=== PATIENT | female | born 1980 | race Caucasian/White ===

== ENCOUNTER 2020-10-11 11:36 | Emergency (ER) | payer BC, MEDICAID ==
[~2020-10-11] VITALS: Ht 162.6 cm; Wt 75.0 kg
[2020-10-11] MEDS ORDERED: SODIUM CHLORIDE 0.9% 1,000 ML IV ONE (13:15)
[2020-10-11 14:04] LABS: CHLORIDE 115 mEq/L (98-107)
[2020-10-11 14:07] LABS: ETHANOL BLOOD 21 mg/dL
[2020-10-11 14:10] LABS: BASOPHILS % 0.8 % (0.0-2.0); EOSINOPHILS % 2.5 % (0.0-5.0); HEMATOCRIT. 42.7 % (36.0-48.0); HEMOGLOBIN. 14.2 g/dL (12.0-16.0); LYMPHOCYTES % 26.2 % (20.0-50.0); MEAN CORPUSCULAR HEMOGLOBIN 28.1 pg (28.0-32.0); MEAN CORPUSCULAR VOLUME 84.4 fL (81.0-99.0); MEAN PLATELET VOLUME 8.8 fl (7.4-10.4); MONOCYTES % 9.7 % (2.0-8.0); NEUTROPHILS % 60.8 % (40.0-76.0); PLATELET 284 x1000/uL (130-400); RED BLOOD CELL COUNT 5.06 mill/uL (4.2-5.4); RED CELL DISTRIBUTION WIDTH 15.1 % (11.6-14.6)
[2020-10-11] MEDS ORDERED: IBUPROFEN 400MG TABLET PO NR (14:15)
[2020-10-11] MEDS ORDERED: ACETAMINOPHEN 325MG TABLET PO NR (14:15)
[2020-10-11 14:51] LABS: *AMPHETAMINES SCREEN URINE NEGATIVE (NEGATIVE)
[2020-10-11 14:52] LABS: *BARBITURATES SCREEN URINE NEGATIVE (NEGATIVE); *BENZODIAZEPINES SCREEN URINE NEGATIVE (NEGATIVE); *COCAINE SCREEN URINE NEGATIVE (NEGATIVE); METHADONE URINE SCREEN NEGATIVE (NEGATIVE); PHENCYCLIDINE URINE SCREEN NEGATIVE (NEGATIVE)
[2020-10-11 14:53] LABS: CANNABINOID URINE SCREEN NEGATIVE (NEGATIVE)
[2020-10-11 14:56] LABS: OPIATES URINE SCREEN PRESUMTIVE POSITIVE (NEGATIVE)
[2020-10-11 15:05] LABS: HCG SCREEN NEGATIVE
[2020-10-11 16:16] VITALS: BP 120/86
== END 2020-10-11 16:17 | disposition home or self-care (01) ==
LOC: ER 11:36
DX: M54.2 Cervicalgia (principal); M25.551 Pain in right hip; F10.129 Alcohol abuse with intoxication, unspecified; Y90.1 Blood alcohol level of 20-39 mg/100 ml; Z90.49 Acquired absence of other specified parts of digestive tract; W18.39XA Other fall on same level, initial encounter; Y93.89 Activity, other specified; Y92.89 Other specified places as the place of occurrence of the external cause; Y99.8 Other external cause status
CPT/HCPCS: 36415; 70450; 71045; 72125; 72170; 80053; 80305; 80320; 81025; 84703; 85025; 96360; 99285; J7030; G0480

== ENCOUNTER 2022-07-05 09:33 | Emergency (ER) | payer BC, MEDICAID ==
[~2022-07-05] VITALS: Ht 162.6 cm; Wt 59.0 kg
[2022-07-05 09:35] VITALS: BP 114/79
[2022-07-05 10:01] LABS: BASOPHILS % 0.7 % (0.0-2.0); EOSINOPHILS % 3.1 % (0.0-5.0); HEMATOCRIT. 36.7 % (36.0-48.0); HEMOGLOBIN. 12.8 g/dL (12.0-16.0); LYMPHOCYTES % 26.6 % (20.0-50.0); MEAN CORPUSCULAR HEMOGLOBIN 28.9 pg (28.0-32.0); MEAN CORPUSCULAR VOLUME 83.1 fL (81.0-99.0); MEAN PLATELET VOLUME 8.1 fl (7.4-10.4); MONOCYTES % 8.1 % (2.0-8.0); NEUTROPHILS % 61.5 % (40.0-76.0); PLATELET 398 x1000/uL (130-400); RED BLOOD CELL COUNT 4.42 mill/uL (4.2-5.4)
[2022-07-05 10:50] LABS: CHLORIDE 108 mEq/L (98-107)
[2022-07-05 12:47] LABS: CLARITY URINE CLEAR (CLEAR); COLOR URINE YELLOW (YELLOW); KETONES URINE 1+ (NEGATIVE); LEUKOCYTE ESTERASE URINE NEGATIVE (NEGATIVE); NITRITE URINE NEGATIVE (NEGATIVE); OCCULT BLOOD URINE NEGATIVE (NEGATIVE); PROTEIN URINE NEGATIVE (NEGATIVE); SPECIFIC GRAVITY URINE 1.011 (1.005-1.030)
[2022-07-05] MEDS ORDERED: ONDANSETRON 4MG ODT PO ONE (13:15)
[2022-07-05] MEDS ORDERED: FAMOTIDINE 20MG TABLET PO ONE (13:15)
[2022-07-05] MEDS ORDERED: ACETAMINOPHEN 325MG TABLET PO ONE (13:15)
[2022-07-05] MEDS ORDERED: FAMOTIDINE 20MG TABLET PO NR (16:00)
[2022-07-05] MEDS ORDERED: ACETAMINOPHEN 325MG TABLET PO NR (16:00)
[2022-07-05] MEDS ORDERED: ONDANSETRON 4MG ODT PO NR (16:00)
[2022-07-05] MEDS ORDERED: ONDA4TAB11 PO (16:54)
[2022-07-05] MEDS ORDERED: TOPUD MT (16:54)
[2022-07-05] MEDS ORDERED: PNV1TABL76 MT (16:54)
== END 2022-07-05 17:31 | disposition home or self-care (01) ==
LOC: ER 09:33
DX: O26.891 Other specified pregnancy related conditions, first trimester (principal); R10.9 Unspecified abdominal pain; Z3A.01 Less than 8 weeks gestation of pregnancy
CPT/HCPCS: 36415; 76801; 76817; 80053; 81003; 81025; 83690; 84702; 85025; 86850; 86900; 86901; 93005; 99285; Q0162

== ENCOUNTER 2022-08-10 18:26 | Emergency (ER) | payer MEDICAID, OTHER ==
[~2022-08-10] VITALS: Ht 162.6 cm; Wt 59.1 kg
[~2022-08-10 18:26] MED LIST: ONDA4TAB11 PO; PNV1TABL76 MT; TOPUD MT
[2022-08-10 19:50] LABS: BASOPHILS % 0.6 % (0.0-2.0); EOSINOPHILS % 2.1 % (0.0-5.0); LYMPHOCYTES % 22.6 % (20.0-50.0); MEAN CORPUSCULAR HEMOGLOBIN 29.1 pg (28.0-32.0); MEAN CORPUSCULAR VOLUME 85.3 fL (81.0-99.0); MEAN PLATELET VOLUME 8.6 fl (7.4-10.4); MONOCYTES % 8.4 % (2.0-8.0); NEUTROPHILS % 66.3 % (40.0-76.0); PLATELET 338 x1000/uL (130-400); RED BLOOD CELL COUNT 4.11 mill/uL (4.2-5.4); RED CELL DISTRIBUTION WIDTH 14.1 % (11.6-14.6)
[2022-08-10 19:55] LABS: CHLORIDE 106 mEq/L (98-107)
[2022-08-10 20:03] LABS: CLARITY URINE CLEAR (CLEAR); COLOR URINE YELLOW (YELLOW); KETONES URINE 4+ (NEGATIVE); LEUKOCYTE ESTERASE URINE NEGATIVE (NEGATIVE); NITRITE URINE NEGATIVE (NEGATIVE); OCCULT BLOOD URINE NEGATIVE (NEGATIVE); PH URINE 5.5 (4.5-8.0); PROTEIN URINE TRACE (NEGATIVE); SPECIFIC GRAVITY URINE 1.021 (1.005-1.030)
[2022-08-10 20:25] LABS: B-HCG QUANTITATIVE 73753 mIU/mL (<3)
[2022-08-10 21:55] VITALS: BP 106/72
[2022-08-10] MEDS ORDERED: CEPH500C2 MT (22:44)
[2022-08-10] MEDS ORDERED: DOXY25TA49 PO (22:44)
[2022-08-10] MEDS ORDERED: PYRI25TA4 MT (22:44)
[2022-08-10] MEDS ORDERED: ONDANSETRON 4MG ODT PO ONE (22:45)
[2022-08-10] MEDS ORDERED: ACETAMINOPHEN 325MG TABLET PO ONE (23:00)
== END 2022-08-10 23:00 | disposition home or self-care (01) ==
LOC: ER 18:26
DX: O23.42 Unspecified infection of urinary tract in pregnancy, second trimester (principal); N39.0 Urinary tract infection, site not specified; Z3A.18 18 weeks gestation of pregnancy; I49.9 Cardiac arrhythmia, unspecified
CPT/HCPCS: 36415; 76801; 80053; 81003; 84484; 84702; 85025; 93005; 99285